=== PATIENT | female | born 1950 | race Two or more races ===

== ENCOUNTER 2017-09-20 19:32 | Emergency (ER) | payer MEDICARE, OTHER ==
[~2017-09-20] VITALS: Ht 154.9 cm; Wt 63.0 kg
[2017-09-20] MEDS ORDERED: Sodium Chloride 500ML 500 ML IV ONE (20:12)
[2017-09-20 20:24] LABS: APPEARANCE,URINE CLEAR; BILIRUBIN, URINE NEGATIVE (NEGATIVE); COLOR,URINE PALE YELLOW; GLUCOSE, URINE (UA) NEGATIVE (NEGATIVE); KETONES,URINE NEGATIVE (NEGATIVE); LEUKOCYTE ESTERASE ,URINE NEGATIVE (NEGATIVE); NITRITE,URINE NEGATIVE (NEGATIVE); PH,URINE 6.5 (4.5-8.0); PROTEIN,URINE NEGATIVE (NEGATIVE); UROBILINOGEN,URINE NORMAL MG/DL (0.0-1.0)
--- NOTE | 2017-09-20 20:29 | Emergency Room Report ---
History of Present Illness General Chief Complaint: Abdominal Pain Source: Patient Present Illness HPI Patient is a 67-year-old female presenting with vague abdominal pain for approximately 2 weeks. Patient states pain is constant but every once in a while will flare and get more intense. She denies any radiation, denies worsening or alleviating factors. The pain is located in the epigastric right upper and left upper quadrants. Allergies: Coded Allergies: No Known Allergies (Unverified , 09/20/17) Patient History Past Medical History: DM, HTN Past Surgical History: none Pertinent Family History: none Social History: Denies: smoking, alcohol use, drug use Now: No : 4 Para: 2 Nursing Documentation-PMH Hx Hypertension: Yes Hx Diabetes: Yes Review of Systems Constitutional: Denies: no symptoms, see HPI, chills, sweats, fever, malaise, weakness, other Eye: Denies: no symptoms, see HPI, eye pain, blurred vision, tearing, double vision, nose pain, nose congestion, acuity changes, discharge, other ENT: Denies: no symptoms, see HPI, ear pain, ear discharge, nose pain, nose congestion, throat pain, throat swelling, mouth pain, hearing loss, nasal discharge, other Respiratory: Denies: no symptoms, see HPI, cough, orthopnea, shortness of breath, stridor, wheezing, BERNSTEIN, sputum, other Cardiovascular: Denies: no symptoms, see HPI, chest pain, edema, palpitations, syncope, PND, other Gastrointestinal: Reports: abdominal pain Genitourinary: Denies: no symptoms, see HPI, discharge, dysuria, frequency, hematuria, pain, retention, incontinence, urgency, vag bleed/dc, other Musculoskeletal: Denies: no symptoms, see HPI, back pain, gout, joint pain, joint swelling, muscle pain, muscle stiffness, other Skin: Denies: no symptoms, see HPI, rash, change in color, change in hair/nails , dryness, lesions, other Psychiatric: Denies: no symptoms, see HPI, prior hx, anxiety, depressed feelings, emotional problems, SI, HI, hallucinations, other Neurological: Denies: no symptoms, see HPI, headache, numbness, paresthesia, seizure, tingling, tremors, focal weakness, syncope, dizziness, other Endocrine: Denies: no symptoms, see HPI, excessive sweating, flushing, intolerance to temperature, increased thirst, increased urine, unexplained weight loss, other Physical Exam Vital Signs Date Time Temp Pulse Resp B/P (MAP) Pulse Ox O2 Delivery O2 Flow Rate FiO2 09/20/17 19:36 100.8 93 14 161/84 98 Room Air 100.8 Sp02 EP Interpretation: reviewed, normal General Appearance: no apparent distress, alert, GCS 15, non-toxic Head: normocephalic, atraumatic Eyes: bilateral eye normal inspection, bilateral eye PERRL ENT: hearing grossly normal, normal pharynx, no angioedema, normal voice Neck: full range of motion, supple/symm/no masses Respiratory: chest non-tender, lungs clear, normal breath sounds, speaking full sentences Cardiovascular #1: regular rate, rhythm, no edema Cardiovascular #2: 2+ carotid (R), 2+ carotid (L), 2+ radial (R), 2+ radial (L) , 2+ dorsalis pedis (R), 2+ dorsalis pedis (L) Gastrointestinal: normal bowel sounds, non tender, soft, non-distended, no guarding, no rebound Rectal: deferred Genitourinary: normal inspection, no CVA tenderness Musculoskeletal: back normal, gait/station normal, normal range of motion, non- tender, calf tenderness Neurologic: alert, oriented x3, responsive, motor strength/tone normal, sensory intact, speech normal Psychiatric: judgement/insight normal, memory normal, mood/affect normal, no suicidal/homicidal ideation Reflexes: 3+ bicep (R), 3+ bicep (L), 3+ tricep (R), 3+ tricep (L), 3+ knee (R) , 3+ knee (L) Skin: normal color, no rash, warm/dry, well hydrated Lymphatic: no adenopathy Medical Decision Making Diagnostic Impression: Primary Impression: Abdominal pain Qualified Codes: R10.10 - Upper abdominal pain, unspecified ER Course Patient is a 67-year-old female with vague abdominal pain lasting 2 weeks. Laboratory studies and EKG in the emergency department are unremarkable. The patient is in no distress and has no pain at this time. I feel comfortable sending the patient home to follow with her primary care physician for imaging as an outpatient if that is required. She is in agreement with plan. Laboratory Tests Test 09/20/17 19:55 09/20/17 20:20 Urine Color Pale yellow Urine Appearance Clear Urine pH 6.5 (4.5-8.0) Urine Specific [place] 1.005 (1.005-1.035) Urine Protein Negative (NEGATIVE) Urine Glucose (UA) Negative (NEGATIVE) Urine Ketones Negative (NEGATIVE) Urine Occult Blood Negative (NEGATIVE) Urine Nitrite Negative (NEGATIVE) Urine Bilirubin Negative (NEGATIVE) Urine Urobilinogen Normal MG/DL (0.0-1.0) Urine Leukocyte Esterase Negative (NEGATIVE) White Blood Count 6.1 K/UL (4.8-10.8) Red Blood Count 5.02 M/UL (4.20-5.40) Hemoglobin 12.3 G/DL (12.0-16.0) Hematocrit 39.9 % (37.0-47.0) Mean Corpuscular Volume 79 FL (80-99) L Mean Corpuscular Hemoglobin 24.5 PG (27.0-31.0) L Mean Corpuscular Hemoglobin Concent 30.8 G/DL (32.0-36.0) L Red Cell Distribution Width 12.6 % (11.6-14.8) Platelet Count 341 K/UL (150-450) Mean Platelet Volume 5.0 FL (6.5-10.1) L Neutrophils (%) (Auto) 59.4 % (45.0-75.0) Lymphocytes (%) (Auto) 18.3 % (20.0-45.0) L Monocytes (%) (Auto) 9.3 % (1.0-10.0) Eosinophils (%) (Auto) 11.2 % (0.0-3.0) H Basophils (%) (Auto) 1.8 % (0.0-2.0) Sodium Level 135 MMOL/L (136-145) L Potassium Level 4.9 MMOL/L (3.5-5.1) Chloride Level 101 MMOL/L (98-107) Carbon Dioxide Level 29 MMOL/L (21-32) Anion Gap 6 mmol/L (5-15) Blood Urea Nitrogen 14 mg/dL (7-18) Creatinine 0.7 MG/DL (0.55-1.30) Estimate Glomerular Filtration Rate > 60 mL/min (>60) Glucose Level 97 MG/DL (74-106) Calcium Level 8.7 MG/DL (8.5-10.1) Total Bilirubin 0.2 MG/DL (0.2-1.0) Aspartate Amino Transferase (AST) 21 U/L (15-37) Alanine Aminotransferase (ALT) 29 U/L (12-78) Alkaline Phosphatase 86 U/L (46-116) Troponin I 0.000 ng/mL (0.000-0.056) Total Protein 8.1 G/DL (6.4-8.2) Albumin 3.5 G/DL (3.4-5.0) Globulin 4.6 g/dL Albumin/Globulin Ratio 0.8 (1.0-2.7) L Lipase 359 U/L (73-393) EKG Diagnostic Results EP Interpretation: EKG at 2019-sinus rhythm, rate 88, normal axis, no acute ST or T-wave abnor Last Vital Signs Date Time Temp Pulse Resp B/P (MAP) Pulse Ox O2 Delivery O2 Flow Rate FiO2 09/20/17 19:36 100.8 93 14 161/84 98 Room Air 100.8 Disposition: HOME, SELF-CARE Condition: Stable Scripts Unable to Obtain Active Prescriptions or Reported Meds Referrals: [facility],REFERRING (PCP) Patient Instructions: Abdominal Pain, Adult Mac Barney MD Sep 20, 2017 20:29
[2017-09-20 20:41] LABS: BASOPHILS % (AUTO) 1.8 % (0.0-2.0); EOSINOPHILS % (AUTO) 11.2 % (0.0-3.0); HEMATOCRIT 39.9 % (37.0-47.0); HEMOGLOBIN 12.3 G/DL (12.0-16.0); LYMPHOCYTES % (AUTO) 18.3 % (20.0-45.0); MEAN CORPUSCULAR VOLUME 79 FL (80-99); MONOCYTES % (AUTO) 9.3 % (1.0-10.0); NEUTROPHILS % (AUTO) 59.4 % (45.0-75.0); PLATELET COUNT 341 K/UL (150-450); RED BLOOD COUNT 5.02 M/UL (4.20-5.40); RED CELL DISTRIBUTION WIDTH 12.6 % (11.6-14.8); WHITE BLOOD COUNT 6.1 K/UL (4.8-10.8)
[2017-09-20 20:44] LABS: ANION GAP 6 mmol/L (5-15); BLOOD UREA NITROGEN 14 mg/dL (7-18); CALCIUM 8.7 MG/DL (8.5-10.1); CARBON DIOXIDE 29 MMOL/L (21-32); CHLORIDE 101 MMOL/L (98-107); CREATININE 0.7 MG/DL (0.55-1.30); POTASSIUM 4.9 MMOL/L (3.5-5.1); SODIUM 135 MMOL/L (136-145)
[2017-09-20 20:45] VITALS: BP 149/70
[2017-09-20 20:48] LABS: ALANINE AMINOTRANSFERASE 29 U/L (12-78); ALBUMIN 3.5 G/DL (3.4-5.0); ALBUMIN/GLOBULIN RATIO 0.8 (1.0-2.7); ALKALINE PHOSPHATASE 86 U/L (46-116); ASPARTATE AMINO TRANSFERASE 21 U/L (15-37); BILIRUBIN,TOTAL 0.2 MG/DL (0.2-1.0)
[2017-09-20 21:10] VITALS: BP 149/70
--- NOTE | 2017-09-22 15:44 | Cardiology Report ---
APPROVED REPORT EKG Measurement Heart [id number] Normal sinus rhythm with sinus arrhythmia Septal infarct, age undetermined Abnormal ECG
== END 2017-09-20 21:10 | disposition home or self-care (01) ==
LOC: EMR 20:00
DX: R10.13 Epigastric pain (principal); R10.11 Right upper quadrant pain; R10.12 Left upper quadrant pain; E11.9 Type 2 diabetes mellitus without complications; I10 Essential (primary) hypertension
CPT/HCPCS: 36415; 80053; 81003; 83690; 84484; 85025; 93005; 99284

== ENCOUNTER 2019-08-18 13:52 | Emergency (ER) | payer MEDICARE ==
[~2019-08-18] VITALS: Ht 154.9 cm; Wt 63.5 kg
--- NOTE | 2019-08-18 14:10 | NUR ---
ED Nurse Note: urine collected, sent to labs.
--- NOTE | 2019-08-18 14:24 | NUR ---
ED Nurse Note: Pt walked into ED for lower abdominal pain since this morning 11/08. Pt denies nausea, vomiting, diarrhea. Pt is set up on the monitor. She is alert and ox4, ambulatory. Pt does not have any COVID symptoms. Abdomen soft and tender.
[2019-08-18] MEDS ORDERED: Omnipaque-300 100ml vial INJ PRN (14:30)
[2019-08-18] MEDS ORDERED: Ketorolac 30mg Inj IV ONE (14:30)
--- NOTE | 2019-08-18 14:30 | Emergency Room Report ---
History of Present Illness General Chief Complaint: Abdominal Pain Source: Patient Present Illness HPI Patient is a 69-year-old female presents after increased left-sided abdominal pain. Associated pain to the lower abdominal area. Unchanged with ambulation. Denies any prior episodes in the past. Prior history of hypertension as well as high cholesterol. Had not been having any fever. Had not been having any vomiting or diarrhea. Patient denies any recent sick contacts. Pain was worsened by movement. Had not previously had any abdominal surgeries. Denies any prior history of ovarian cyst or uterine pathology. She is followed by Dr. Michaels.Patient denies any alcohol intake. Denies any urinary symptoms. Allergies: Coded Allergies: No Known Allergies (Unverified , 09/20/17) COVID-19 Screening Contact w/high risk pt: No Recent Travel to affected area: No Experienced COVID-19 symptoms?: No COVID-19 Testing performed SNUBBER: No Patient History Past Medical History: see triage record Now: No Reviewed Nursing Documentation: PMH: Agreed; PSxH: Agreed Nursing Documentation-PMH Past Medical History: No History, Except For Hx Hypertension: Yes Hx Diabetes: Yes Review of Systems All Other Systems: negative except mentioned in HPI Physical Exam Vital Signs Date Time Temp Pulse Resp B/P (MAP) Pulse Ox O2 Delivery O2 Flow Rate FiO2 08/18/19 13:55 98.8 80 19 143/65 (91) 98 Room Air Sp02 EP Interpretation: reviewed, normal General Appearance: normal inspection, well appearing, no apparent distress, alert, GCS 15 Head: atraumatic ENT: normal ENT inspection, hearing grossly normal, normal voice Neck: normal inspection, full range of motion, supple, no bony tend Respiratory: normal inspection, lungs clear, normal breath sounds, no respiratory distress, no retraction, no wheezing Cardiovascular #1: regular rate, rhythm, no edema Gastrointestinal: normal inspection, normal bowel sounds, non tender, soft, no guarding, no hernia, tenderness - left lower abdomen Genitourinary: no CVA tenderness Musculoskeletal: normal inspection, back normal, normal range of motion Neurologic: alert, responsive, speech normal, normal inspection Psychiatric: normal inspection, judgement/insight normal, mood/affect normal Medical Decision Making Diagnostic Impression: Primary Impression: Duodenitis Additional Impression: Uterine mass ER Course Patient presented for left lower abdominal pain. Differential diagnosis include was not limited to diverticulitis, colitis, bowel obstruction, urinary tract infection, stone among others. Because of complexity of patient's case laboratory tests and imaging studies were ordered.Laboratory testing showed elevated white blood count with some left shift. No evidence of urinary infection. CT imaging showed multiple pelvic calcifications consistent with a uterine fibroids as well as some thickening and inflammation near the duodenum see radiology report for full details. Patient is given IV fluids as well as pain medications. Patient will be transferred to [facility] and was accepted by Dr. Powell Labs Test 08/18/19 14:08 08/18/19 14:36 Urine Color Yellow Urine Appearance Clear Urine pH 5 (4.5-8.0) Urine Specific [place] 1.025 (1.005-1.035) Urine Protein 1+ (NEGATIVE) Urine Glucose (UA) Negative (NEGATIVE) Urine Ketones 1+ (NEGATIVE) Urine Blood Negative (NEGATIVE) Urine Nitrite Negative (NEGATIVE) Urine Bilirubin Negative (NEGATIVE) Urine Urobilinogen 1 MG/DL (0.0-1.0) Urine Leukocyte Esterase 1+ (NEGATIVE) Urine RBC 0 /HPF (0 - 2) Urine WBC 0-2 /HPF (0 - 2) Urine Squamous Epithelial Cells Occasional /LPF Urine Bacteria Occasional /HPF (NONE) White Blood Count 17.0 K/UL (4.8-10.8) Red Blood Count 5.02 M/UL (4.20-5.40) Hemoglobin 12.7 G/DL (12.0-16.0) Hematocrit 41.9 % (37.0-47.0) Mean Corpuscular Volume 83 FL (80-99) Mean Corpuscular Hemoglobin 25.4 PG (27.0-31.0) Mean Corpuscular Hemoglobin Concent 30.4 G/DL (32.0-36.0) Red Cell Distribution Width 12.9 % (11.6-14.8) Platelet Count 313 K/UL (150-450) Mean Platelet Volume 6.2 FL (6.5-10.1) Neutrophils (%) (Auto) % (45.0-75.0) Lymphocytes (%) (Auto) % (20.0-45.0) Monocytes (%) (Auto) % (1.0-10.0) Eosinophils (%) (Auto) % (0.0-3.0) Basophils (%) (Auto) % (0.0-2.0) Differential Total Cells Counted 100 Neutrophils % (Manual) 89 % (45-75) Lymphocytes % (Manual) 5 % (20-45) Monocytes % (Manual) 4 % (1-10) Eosinophils % (Manual) 0 % (0-3) Basophils % (Manual) 0 % (0-2) Band Neutrophils 2 % (0-8) Platelet Estimate Adequate Platelet Morphology Normal Red Blood Cell Morphology Normal Prothrombin Time 10.6 SEC (9.30-11.50) Prothromb Time International Ratio 1.0 (0.9-1.1) Activated Partial Thromboplast Time 26 SEC (23-33) Sodium Level 138 MMOL/L (136-145) Potassium Level 3.3 MMOL/L (3.5-5.1) Chloride Level 99 MMOL/L (98-107) Carbon Dioxide Level 29 MMOL/L (21-32) Anion Gap 10 mmol/L (5-15) Blood Urea Nitrogen 17 mg/dL (7-18) Creatinine 0.7 MG/DL (0.55-1.30) Estimat Glomerular Filtration Rate > 60 mL/min (>60) Glucose Level 105 MG/DL (74-106) Calcium Level 8.7 MG/DL (8.5-10.1) Total Bilirubin 0.5 MG/DL (0.2-1.0) Aspartate Amino Transf (AST/SGOT) 21 U/L (15-37) Alanine Aminotransferase (ALT/SGPT) 29 U/L (12-78) Alkaline Phosphatase 77 U/L (46-116) Troponin I 0.000 ng/mL (0.000-0.056) Total Protein 7.2 G/DL (6.4-8.2) Albumin 3.7 G/DL (3.4-5.0) Globulin 3.5 g/dL Albumin/Globulin Ratio 1.1 (1.0-2.7) Lipase 270 U/L (73-393) Rhythm Strip Diag. Results EP Interpretation: yes Rhythm: NSR, no PVC's, no ectopy Last Vital Signs Date Time Temp Pulse Resp B/P (MAP) Pulse Ox O2 Delivery O2 Flow Rate FiO2 08/18/19 13:55 98.8 80 19 143/65 (91) 98 Room Air Status: improved Disposition: SHORT-TERM HOSP Condition: Serious Scripts Unable to Obtain Active Prescriptions or Reported Meds Dwight Barnard MD Aug 18, 2019 14:30
[2019-08-18 14:37] VITALS: BP 138/64
--- NOTE | 2019-08-18 14:38 | NUR ---
ED Nurse Note: Blood and urine sent.
[2019-08-18 14:45] LABS: APPEARANCE,URINE CLEAR; BILIRUBIN, URINE NEGATIVE (NEGATIVE); GLUCOSE, URINE (UA) NEGATIVE (NEGATIVE); KETONES,URINE 1+ (NEGATIVE); LEUKOCYTE ESTERASE ,URINE 1+ (NEGATIVE); NITRITE,URINE NEGATIVE (NEGATIVE); PH,URINE 5 (4.5-8.0); PROTEIN,URINE 1+ (NEGATIVE); UROBILINOGEN,URINE 1 MG/DL (0.0-1.0)
[2019-08-18 14:50] LABS: COLOR,URINE YELLOW
[2019-08-18 14:51] LABS: HEMATOCRIT 41.9 % (37.0-47.0); HEMOGLOBIN 12.7 G/DL (12.0-16.0); MEAN CORPUSCULAR VOLUME 83 FL (80-99); PLATELET COUNT 313 K/UL (150-450); RED BLOOD COUNT 5.02 M/UL (4.20-5.40); RED CELL DISTRIBUTION WIDTH 12.9 % (11.6-14.8)
[2019-08-18 15:06] LABS: ANION GAP 10 mmol/L (5-15); BLOOD UREA NITROGEN 17 mg/dL (7-18); CALCIUM 8.7 MG/DL (8.5-10.1); CARBON DIOXIDE 29 MMOL/L (21-32); CHLORIDE 99 MMOL/L (98-107); CREATININE 0.7 MG/DL (0.55-1.30); POTASSIUM 3.3 MMOL/L (3.5-5.1); SODIUM 138 MMOL/L (136-145)
[2019-08-18 15:10] LABS: ALANINE AMINOTRANSFERASE 29 U/L (12-78); ALBUMIN 3.7 G/DL (3.4-5.0); ALBUMIN/GLOBULIN RATIO 1.1 (1.0-2.7); ALKALINE PHOSPHATASE 77 U/L (46-116); ASPARTATE AMINO TRANSFERASE 21 U/L (15-37); BILIRUBIN,TOTAL 0.5 MG/DL (0.2-1.0)
[2019-08-18] MEDS ORDERED: cefTRIAXone 1 GM in NS 55 ML IVPB ONE (15:15)
--- NOTE | 2019-08-18 16:21 | Diagnostic Imaging Report ---
Indication: Abdominal pain Technique: CT of the abdomen and pelvis utilizing automated exposure control with intravenous contrast. Venous scanning performed. Axial, sagittal and coronal reformats presented. CT dose: Total DLP 228.8 mGycm; CTDI vol 470 mGy Comparison: None Findings: Image lower lungs are without evidence of focal airspace consolidation, pleural effusion, pneumothorax or discrete pulmonary nodule. Partially imaged heart normal size. Coronary arterial calcifications are noted. There is no pericardial effusion. Partially imaged breast tissue grossly symmetric. Hepatic contour is smooth. No focal hepatic mass lesion appreciated on this single phase exam. Hepatic veins and portal veins are patent. There are no CT evident gallstones or pericholecystic inflammatory changes. No biliary ductal dilatation. Spleen and adrenal glands unremarkable in appearance. There is mild inflammatory stranding about the third portion of the duodenum, adjacent adjacent to some portions of the uncinate process. Findings may related to a duodenitis. Possibility that these inflammatory changes may be related to a pancreatitis not excluded although thought less likely. Correlation with pancreatic enzymes recommended. Pancreatic enhancement is uniform. No peripancreatic fluid collection. Kidneys enhance symmetrically. There is no urinary tract stone, hydronephrosis or perinephric stranding. There is bladder wall thickening. This is enlarged with a lobular contour. Approximately 5.8 cm calcified mass is noted within the uterus most likely representing a fibroid. There is no free intraperitoneal air. There is no evidence of small bowel obstruction. Inflammatory changes noted surrounding the third portion of the duodenum and tracking inferior slightly in the retroperitoneum. The appendix is normal in caliber and there are no periappendiceal inflammatory changes. There is thickening of the wall of the proximal stomach which may related to underdistention versus gastritis. Scattered colonic diverticula are noted. No evidence of acute diverticulitis. Abdominal aorta is normal in caliber with atherosclerotic calcification. No mesenteric and retroperitoneal lymph nodes are noted.. There are degenerative changes in the spine. No acute osseous abnormality. IMPRESSION: * Inflammatory stranding about the third portion of the duodenum which may related to enteritis, infectious or inflammatory in etiology. Given proximity to the pancreas correlation with pancreatic enzymes recommended to exclude the possibility of a pancreatitis. Pancreatic enhancement is uniform and there is no peripancreatic fluid collection/pseudocyst. * Described inflammatory changes track inferiorly in the retroperitoneum. This may be related to acute inflammation however possibility that these findings may be related to developing retroperitoneal fibrosis or additional infiltrative process (for example retroperitoneal lymphoma) not excluded. Follow-up recommended. * Normal appendix. No evidence of small bowel obstruction. * Few scattered colonic diverticula without evidence of acute diverticulitis. * Thickening of the wall the proximal stomach which may be related to underdistention versus gastritis. * Lobular contour of the uterus is a 5.8 cm partially calcified mass most likely representing fibroid. * Coronary arterial calcifications. * Bladder wall thickening which may related to underdistention versus cystitis. Correlate with urinalysis. The CT scanner at [facility] is accredited by the [employer] and the scans are performed using protocols designed to limit radiation exposure to as low as reasonably achievable to attain images of sufficient resolution adequate for diagnostic evaluation.
[2019-08-18] MEDS ORDERED: Morphine Sulfate 2mg/ml Inj(IV/IM USE ONLY) IVP ONE ×2 (17:00→19:00)
[2019-08-18 17:09] VITALS: BP 132/61
[2019-08-18 19:12] VITALS: BP_SYST 132; BP_SYST 139; BP_DIAS 61; BP_DIAS 67
--- NOTE | 2019-08-18 21:00 | NUR ---
ED Nurse Note: Pt resting in bed with eyes closed, non-labored breathing, awaiting transfer information, will continue to monitor
[2019-08-18 22:45] VITALS: BP 157/65
--- NOTE | 2019-08-18 22:45 | NUR ---
ER DISCHARGE NOTE: Patient is cleared to be discharged per ERMD, pt is aox4, on room air, with stable vital signs. pt was given dc and prescription instructions, pt was able to verbalize understanding, pt id band removed without complications. pt is stable to be transferred to [facility], report given to EN [facility]. pt took all belongings.
== END 2019-08-18 22:45 | disposition short-term general hospital (02) ==
LOC: EMR 14:32
DX: K29.80 Duodenitis without bleeding (principal); N85.8 Other specified noninflammatory disorders of uterus; I10 Essential (primary) hypertension; E11.9 Type 2 diabetes mellitus without complications
CPT/HCPCS: 36415; 74177; 80053; 81003; 83690; 84484; 85007; 85025; 85610; 85730; 93005; 96365; 96375; 96376; 99285; J0696; J1885; J2270; J2405; Q9967; S0028